=== PATIENT | female | born 1950 | race Caucasian/White ===

== ENCOUNTER 2017-08-20 05:31 | Inpatient (IN) | payer BC, OTHER ==
[2017-08-13 13:05] LABS: HEMATOCRIT 43.3 % (37.0-47.0); HEMOGLOBIN 14.7 gm/dL (12.0-15.0); MCH 32.8 pg (26.0-34.0); MCHC 33.9 g/dL (28.0-37.0); MCV 96.8 fL (80.0-100.0); RBC 4.47 mil/uL (4.20-5.00); RDW 13.1 % (10.5-14.5); WBC 8.3 thou/uL (4.0-11.0)
[2017-08-13 13:09] LABS: URINE BILIRUBIN NEGATIVE (Negative); URINE BLOOD NEGATIVE (Negative); URINE CLARITY CLEAR; URINE COLOR YELLOW; URINE GLUCOSE-RANDOM* NEGATIVE (Negative); URINE KETONES NEGATIVE (Negative); URINE LEUKOCYTES-REFLEX NEGATIVE (Negative); URINE NITRITE-REFLEX NEGATIVE (Negative); URINE PROTEIN (DIPSTICK) NEGATIVE (Negative); URINE SPECIFIC GRAVITY 1.025 (1.005-1.035); URINE UROBILINOGEN 0.2 E.U./dl (0.2-1.0)
[2017-08-13 13:14] LABS: ALBUMIN 3.9 g/dL (3.4-5.0); CALCIUM 9.1 mg/dL (8.5-10.1); CREATININE 0.8 mg/dL (0.6-1.0); POTASSIUM 4.6 mmol/L (3.5-5.1)
[2017-08-13 13:18] LABS: PROTIME 10.3 Seconds (9.3-11.4)
[~2017-08-20] VITALS: Ht 170.2 cm; Wt 99.3 kg
--- NOTE | ~2017-08-20 | O ---
[facility] [place] [address] OPERATIVE REPORT Name: RITA KHAN Room #: 401-I [facility] IN ..#: [id number] Admission: 08/20/17 Attend Phys: Zurdo Serrano MD Discharge: 08/21/17 Date of : 50 Report #: [id number] THIS REPORT FOR: //name// CC: [facility] physician/PCP Zurdo Serrano DATE OF SERVICE: 08/20/2017 PREOPERATIVE DIAGNOSIS: Right hip osteoarthritis. POSTOPERATIVE DIAGNOSIS: Right hip osteoarthritis. PROCEDURE: Right total hip arthroplasty. SURGEON: Zurdo Serrano MD [facility] PROVIDER: Tanna Meza PA-C. INDICATIONS FOR ASSISTANCE: Throughout the case, extensive retraction as well as dislocation and reduction of the hip was required. This was afforded to me by my clinical physician assistant. ANESTHESIA: General endotracheal. IMPLANTS: [employer] size 12 Synergy high offset press-fit stem, a size 52 R3 acetabular cup with one acetabular screw and a size 36+4 cobalt chrome head. ESTIMATED BLOOD LOSS: 200 mL. COMPLICATIONS: None. SPECIMENS: None. CONDITION UPON LEAVING THE OPERATING ROOM: Stable. INDICATIONS FOR PROCEDURE: The patient is a 67-year-old female with right hip osteoarthritis. She had failed conservative treatment for this and after discussion with her, she elected for right total hip arthroplasty. DESCRIPTION OF PROCEDURE: Risks, benefits, alternatives, complications were discussed in detail with the patient including but not limited to risk of anesthesia, risk of damage to nerves, arteries, blood vessels, risk for infection and bleeding, risk for continued hip pain, leg length discrepancy, instability and need for reoperation. Informed consent was obtained from the [facility] [place] [place] [address] OPERATIVE REPORT Name: RITA KHAN Room #: 401-I [facility] IN [facility].#: [id number] Admission: 08/20/17 Attend Phys: Zurdo Serrano MD Discharge: 08/21/17 Date of : 50 Report #: [id number] patient. The right hip was appropriately marked in the preoperative holding area. IV clindamycin was given for preoperative antibiotics. She was brought to the operating room and placed in supine position on operating room table. General endotracheal anesthesia was induced without complication. She was then placed in the left lateral decubitus position with right hip uppermost. Right hip and lower extremity were prepped and draped in normal sterile fashion. Timeout was performed, properly identifying the patient and procedure as well as the instrumentation. All in the operating room were in agreement. Standard posterior approach to the hip was made with a 10 blade through the skin. Dissection was taken down to the fascia with Bovie cautery and a Garcia elevator was used to clean off the fascia. Fresh 10 blade was used to make a fascial incision. This was taken proximally and distally with curved Cleaning scissor. Charnley retractor was placed. Trochanteric bursa was taken down with Bovie cautery. Piriformis tendon was identified, tagged and taken down with Bovie. Short external rotators were also taken down with Bovie cautery. Capsulotomy was made and capsule ends were tagged for later repair. Hip was dislocated and there was extensive osteoarthritic change of the femoral head. Femoral neck cut was then made 1 cm proximal to lesser trochanter based on preoperative templating and the femoral head was removed. Deep acetabular retractors were placed and the labrum was removed sharply. Pulvinar was removed with Bovie cautery. Acetabulum was then sequentially reamed up to a size 52, at which point, there was excellent bleeding cancellous bone. This was trialed with a size 51 trial and found to have a good fit. A final size 52 R3 acetabular cup was then placed and seated. One acetabular screw was placed for backup fixation. A polyethylene liner for a 36 head was placed. Attention was turned to the femur. This was reamed and broached up to a size 12, at which point, a size 12 broach was stable. This was trialed with a high offset neck and a 36+0 head. Hip was reduced, taken through range of motion, found to be stable, found to have a short leg length on the right compared to the left and this was felt this could be made up ____ with the final implant. The hip was dislocated and a broach was removed and final size 12 high offset Synergy press-fit stem was then placed. This was trialed with a 36+4 head. Hip was reduced, taken through range of motion, found to be stable, found to have equal leg lengths. Hip was dislocated and a final size 36+4 cobalt chrome head was placed. Hip was reduced, taken through range of motion, found to be stable, found to have equal leg length. The hip was thoroughly irrigated with normal saline. Periarticular injection consisting of morphine, ropivacaine, epinephrine and Toradol was placed around the hip joint. A gram of vancomycin was placed deep in the hip joint. The capsule and piriformis were repaired with 0 FiberWire. The fascia was closed with 0 Vicryl, skin was closed with 2-0 Vicryl, 3-0 Monocryl. Dermabond and a WESTON dressing was applied. The patient tolerated this procedure well and went to the recovery room under care of Anesthesia postoperatively. <ELECTRONICALLY SIGNED> By: Zurdo Serrano MD 09/09/17 [id number] Zurdo Serrano MD /nt
--- NOTE | ~2017-08-20 | EKG ---
[address] [place] [address] ELECTROCARDIOGRAM REPORT Name: RITA KHAN Room #: PRE IN [facility]#: [id number] Admission: Attend Phys: Zurdo Serrano MD Discharge: Date of : 50 Report #: [id number] THIS REPORT FOR: //name// [facility] Test Date: 2017-08-13 Test Time: 13:05:46 Pat Name: RITA KHAN Department: Room: Gender: F Senior Technical Recruiter: SUZIE VANCE : 1950 Requested By: Zurdo Serrano Order Number: [id number] MD: Mike Dillard Measurements Intervals [place] Rate: 67 P: 28 AK: 153 QRS: 47 QRSD: 87 T: 31 QT: 412 QTc: 435 Interpretive Statements Sinus rhythm No significant abnormality No previous ECG available for comparison Electronically Signed On 08-13-2017 17:34:54 TALENT REP by Mike Dillard [email or web address] <ELECTRONICALLY SIGNED> By: Mike Dillard MD, [facility] 08/13/17 1734 1305 1305 Mike Dillard MD, FACC /EPI
[~2017-08-20 05:31] MED LIST: ACETAMINOPHEN-1 EAC1 PO; CENTRUM SILVER1 EAC4 PO; FLONASE 0.05%50 MCG NASAL; IBUPROFEN 200200 M1 PO; LISINOPRIL20 MG PO; NEXIUM40 MG PO; ROBAXIN500 MG PO; TOPROL XL100 MG PO; TRAZODONE 150150 M1 PO; VITAMIN B COMP1 EACH PO; VITAMIN B-12100 MCG PO; VITAMIN E400 UNIT PO
[2017-08-20 11:45] VITALS: BP 128/70
[2017-08-20 16:25] VITALS: BP 165/60
[2017-08-20 16:30] VITALS: BP 157/49
[2017-08-20 16:45] VITALS: BP 131/55
[2017-08-20 17:00] VITALS: BP 132/44
[2017-08-20 17:30] VITALS: BP 118/47
[2017-08-21] VITALS: BP 102/46
[2017-08-21 04:00] VITALS: BP 102/44
[2017-08-21 05:31] LABS: HEMATOCRIT 31.8 % (37.0-47.0); HEMOGLOBIN 10.6 gm/dL (12.0-15.0); MCH 32.5 pg (26.0-34.0); MCHC 33.5 g/dL (28.0-37.0); MCV 97.2 fL (80.0-100.0); RBC 3.27 mil/uL (4.20-5.00); RDW 13.3 % (10.5-14.5); WBC 12.3 thou/uL (4.0-11.0)
[2017-08-21] MEDS ORDERED: TRI-BUFFERED A325 M1 PO (08:46)
[2017-08-21] MEDS ORDERED: MS CONTIN15 MG PO (08:47)
[2017-08-21] MEDS ORDERED: PERCOCET PO (08:47)
[2017-08-21 09:19] VITALS: BP 122/62
[2017-08-21 14:13] VITALS: BP 122/62
== END 2017-08-21 14:30 | disposition home or self-care (01) | DRG 470 ==
LOC: 4N 05:31 → TBA 05:31 → PRE 05:37 → 4N 16:06 → ENTRNSPT 08-21 14:28 → 4N 08-21 14:30 → EDTRNSPTSTS 08-21 14:31
PROVIDERS: Orthopaedic Surgery
PROC: 0SR902A Replacement of Right Hip Joint with Metal on Polyethylene Synthetic Substitute, Uncemented, Open Approach (ICD-10-PCS; principal; 2017-08-20)
DX: M16.11 Unilateral primary osteoarthritis, right hip (principal); Z88.5 Allergy status to narcotic agent; Z88.0 Allergy status to penicillin; Z88.8 Allergy status to other drugs, medicaments and biological substances; Z91.040 Latex allergy status; Z91.09 Other allergy status, other than to drugs and biological substances
CPT/HCPCS: 10790; 50010; 50101; 50382; 50414; 51771; 53000; 53078; 53367; 54118; 56524; 56527; 56528; 56530; 57095; 62110; 62900; 70005